=== PATIENT | male | born 1995 | race Caucasian/White ===

== ENCOUNTER 2016-05-23 14:45 | Emergency (ER) | payer OTHER ==
[~2016-05-23] VITALS: Ht 170.2 cm; Wt 64.0 kg
[2016-05-23 15:33] LABS: HEMATOCRIT 44.1 % (38.0-50.0); MCH 27.1 PG (29.0-34.0); MCV 79.7 FL (86-99); MEAN PLAT.VOLUME 10.9 uM^3 (9.0-12.4); PLATELET COUNT 161 K/uL (156-360); RBC DIS.WIDTH-CV 13.1 % (11.8-14.6); RBC DIS.WIDTH-SD 37.8 % (39-53); RED BLOOD COUNT 5.53 M/uL (4.00-5.50); WHITE BLOOD COUNT 6.1 K/uL (4.1-10.2)
[2016-05-23 15:42] LABS: CHLORIDE 107 mEq/L (99-109); SODIUM 142 mEq/L (136-147)
[2016-05-23 15:44] LABS: GLUCOSE 83 mg/dL (70-99)
[2016-05-23 15:45] LABS: ANION GAP 8 MEQ/L (2-14)
[2016-05-23 15:46] LABS: TOTAL BILIRUBIN 0.6 mg/dL (0.0-1.0)
[2016-05-23 15:48] LABS: ALKALINE PHOSPHATASE 111 IU/L (3-129); GFR ESTIMATE (CALCULATED) > 59 mL/min/
[2016-05-23 15:49] LABS: UREA NITROGEN (BUN) 16 mg/dL (9-23)
[2016-05-23 15:51] LABS: LIPASE 26 U/L (1.0-51.0)
[2016-05-23 16:36] VITALS: BP 130/87
== END 2016-05-23 16:37 | disposition home or self-care (01) ==
LOC: EME 14:45
PROVIDERS: Emergency Medicine
DX: M54.6 Pain in thoracic spine (principal); M41.9 Scoliosis, unspecified; V49.50XA Passenger injured in collision with unspecified motor vehicles in traffic accident, initial encounter; F84.0 Autistic disorder
CPT/HCPCS: 72070; 80053; 83690; 85027; 99281; 99283